=== PATIENT | female | born 1950 | race Caucasian/White ===

== ENCOUNTER 2016-10-17 07:12 | Emergency (ER) | payer BC ==
[2016-10-17] MEDS ORDERED: DIPHENHYDRAMINE HCL 50 MG/1 ML VIAL ONE (07:52)
[2016-10-17] MEDS ORDERED: MORPHINE SULFATE 4 MG/ML SYRINGE ONE (07:52)
[2016-10-17] MEDS ORDERED: SODIUM CHLORIDE 0.9% 1,000 ML ONE (07:52)
[2016-10-17 08:00] LABS: BASO % 0.3 % (0.2-1.0); EOS % 0.3 % (0.9-2.9); HEMATOCRIT 36.5 % (37.0-47.0); HEMOGLOBIN 11.9 gm/l (12.0-16.0); IMM NEUT% 0.3 % (0-1); LYMPH # 1.5 (1.0-4.8); LYMPH % 16.1 % (15-45); MEAN CELL VOLUME 85.7 fl (81.0-99.0); MEAN CORPUSCULAR HEMOGLOBIN 27.9 pg (27.0-31.0); MEAN CORPUSCULAR HGB CONC 32.6 g/dl (33.0-37.0); MEAN PLATELET VOLUME 11.4 fl (7.4-10.4); MONO # 0.4 (0.0-0.8); MONO % 4.9 % (4-12); NEUT % 78.1 % (43-75); PLATELET COUNT 191 K/mm3 (130-400); RED CELL DISTRIBUTION WIDTH 14.1 % (11.5-14.5)
[2016-10-17 08:10] LABS: ALB/GLOB RATIO 1.3 (>1.0); ALBUMIN 3.5 gm/dL (3.5-5.7); CALCIUM 9.2 mg/dL (8.6-10.3)
[2016-10-17 08:17] LABS: D-DIMER 1.5 mg/L FEU (0.20-0.50); INR 1.23
--- NOTE | 2016-10-17 08:24 | RAD ---
Exam: Pelvis and two-view right hip COMPARISON: 09/16/2016 and 02/28/2016 INDICATION: Right hip pain. FINDINGS: AP view of the pelvis and AP and frog-leg lateral views of the right hip were obtained. Postsurgical changes of right hip arthroplasty are unchanged. There is no evidence of hardware loosening or failure. No pericomponent fracture is identified. Mild to degenerative changes are again noted within the left hip. Degenerative changes are noted within the lumbar spine. Spine stimulator is appreciated. IMPRESSION: No acute findings identified to explain right hip pain. Continued satisfactory appearance of the right hip following arthroplasty without evidence of hardware loosening or failure.
--- NOTE | 2016-10-17 10:01 | US ---
Exam: Right lower extremity venous ultrasound COMPARISON: None INDICATION: Right leg and knee pain for one day. Swelling. Patient is on Coumadin. FINDINGS: The deep venous system of the right lower extremity was evaluated with color flow, compression, augmentation and spectral analysis. The deep venous system of the right lower extremity from popliteal vein up to the common femoral vein is patent without evidence of DVT. Proximal calf veins appear patent as well. IMPRESSION: No evidence of DVT within the right lower extremity. Report was uploaded to the EMR at 0957 hours 10/17/2016.
== END 2016-10-17 12:02 | disposition home or self-care (01) ==
LOC: ED 07:12
DX: M25.551 Pain in right hip (principal); M79.604 Pain in right leg; Z96.641 Presence of right artificial hip joint; D68.51 Activated protein C resistance; Z79.01 Long term (current) use of anticoagulants
CPT/HCPCS: 85379; 85025; 80053; 85610; 73502; 96375; 99284 ×2; 96374; 93971; J1200; J2270; J7030

== ENCOUNTER 2016-10-22 22:36 | Emergency (ER) | payer BC ==
[2016-10-23] LABS: BASO % 0.3 % (0.2-1.0); EOS # 0.1 (0.0-0.5); EOS % 0.7 % (0.9-2.9); HEMATOCRIT 39.2 % (37.0-47.0); HEMOGLOBIN 12.8 gm/l (12.0-16.0); IMM NEUT% 0.3 % (0-1); LYMPH # 1.5 (1.0-4.8); LYMPH % 16.5 % (15-45); MEAN CELL VOLUME 85.2 fl (81.0-99.0); MEAN CORPUSCULAR HEMOGLOBIN 27.8 pg (27.0-31.0); MEAN CORPUSCULAR HGB CONC 32.7 g/dl (33.0-37.0); MEAN PLATELET VOLUME 10.8 fl (7.4-10.4); MONO # 0.4 (0.0-0.8); MONO % 4.4 % (4-12); NEUT % 77.8 % (43-75); PLATELET COUNT 329 K/mm3 (130-400); RED CELL DISTRIBUTION WIDTH 14.1 % (11.5-14.5)
[2016-10-23 00:17] LABS: INR 2.92; PROTHROMBIN TIME 32.4 SECONDS (9.3-11.4)
[2016-10-23 00:24] LABS: ALB/GLOB RATIO 1.1 (>1.0); ALBUMIN 3.7 gm/dL (3.5-5.7); C-REACTIVE PROTEIN 0.4 mg/dl (<1.0); CALCIUM 9.6 mg/dL (8.6-10.3)
[2016-10-23] MEDS ORDERED: ACETAMINOPHEN 500 MG TABLET ONE (00:29)
[2016-10-23] MEDS ORDERED: SODIUM CHLORIDE 0.9% 1,000 ML ONE (00:29)
[2016-10-23 00:36] LABS: SPECIFIC GRAVITY 1.015 (1.001-1.030); URINE BILIRUBIN NEGATIVE (NEGATIVE); URINE BLOOD 2+ (NEGATIVE); URINE GLUCOSE (UA) NEGATIVE (NEGATIVE); URINE LEUKOCYTE ESTERASE 1+ (NEGATIVE); URINE NITRITE NEGATIVE (NEGATIVE); URINE PROTEIN TRACE (NEGATIVE); URINE UROBILINOGEN NORMAL (0-1 mg/dl)
[2016-10-23 00:44] LABS: URINE APPEARANCE SL CLOUDY; URINE BACTERIA TRACE; URINE COLOR YELLOW
[2016-10-23 00:45] LABS: URINE AMORPHOUS SEDIMENT 4+
--- NOTE | 2016-10-23 08:34 | RAD ---
EXAMINATION:CHEST - 2 VIEWS CLINICAL INDICATION: Fever and chills. COMPARISON: 10/23/2015. FINDINGS: The cardiomediastinal silhouette is unaltered from the prior examination. There is no adenopathy identified. There is no pleural effusion. The lungs are clear. The osseous structures are unremarkable for age. Implanted thoracic spine stimulator is again noted. IMPRESSION: Negative PA and lateral views of the chest. No acute cardiopulmonary process is identified.
== END 2016-10-23 01:12 | disposition home or self-care (01) ==
LOC: ED 22:36
DX: G89.18 Other acute postprocedural pain (principal); M25.551 Pain in right hip; R68.83 Chills (without fever); K21.9 Gastro-esophageal reflux disease without esophagitis; Z86.73 Personal history of transient ischemic attack (TIA), and cerebral infarction without residual deficits; J44.9 Chronic obstructive pulmonary disease, unspecified; M79.7 Fibromyalgia; M06.9 Rheumatoid arthritis, unspecified; Z86.718 Personal history of other venous thrombosis and embolism; D68.51 Activated protein C resistance; Z79.899 Other long term (current) drug therapy; M19.90 Unspecified osteoarthritis, unspecified site
CPT/HCPCS: 83690; 86141; 85025; 87040; 80053; 85610; 85651; 81001; 71020; 87804; 99283 ×2; 96360; A9270; J7030